=== PATIENT | male | born 1980 | race Caucasian/White ===

== ENCOUNTER → 2020-10-23 16:34 | Outpatient (CLI) | payer OTHER, MEDICAID, SELFPAY ==
[2020-10-23] MEDS: COVID-19 VACC #1, MRNA(MOD) 100 MCG/0.5 ML VIAL IM (16:40)
== END ==
PROVIDERS: Family Provider Family Medicine; PCP Family Medicine; Visit Provider Internal Medicine
DX: Z23 Encounter for immunization (principal)
CPT/HCPCS: 0011A; 91301

== ENCOUNTER → 2020-11-20 11:20 | Outpatient (CLI) | payer OTHER, MEDICAID, SELFPAY ==
[2020-11-20] MEDS: COVID-19 VACC #2, MRNA(MOD) 100 MCG/0.5 ML VIAL IM (11:32)
== END ==
PROVIDERS: Family Provider Family Medicine; PCP Family Medicine; Visit Provider Internal Medicine
DX: Z23 Encounter for immunization (principal)
CPT/HCPCS: 0012A; 91301

== ENCOUNTER → 2023-02-06 11:31 | Outpatient (CLI) | payer OTHER, MEDICAID, SELFPAY ==
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
== END ==
PROVIDERS: Family Provider Family Medicine; PCP Family Medicine; Referring Provider Physical Medicine & Rehabilitation; Visit Provider Physical Medicine & Rehabilitation
DX: S83.422A Sprain of lateral collateral ligament of left knee, initial encounter (principal); M70.62 Trochanteric bursitis, left hip; M25.552 Pain in left hip; M25.562 Pain in left knee; M25.462 Effusion, left knee
CPT/HCPCS: 73522; 73562; 99213

== ENCOUNTER → 2023-06-12 11:06 | Outpatient (CLI) | payer OTHER, MEDICAID, SELFPAY ==
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
== END ==
PROVIDERS: Family Provider Family Medicine; PCP Family Medicine; Referring Provider Physical Medicine & Rehabilitation; Visit Provider Physical Medicine & Rehabilitation
DX: S83.422A Sprain of lateral collateral ligament of left knee, initial encounter (principal); S83.512A Sprain of anterior cruciate ligament of left knee, initial encounter; S83.412A Sprain of medial collateral ligament of left knee, initial encounter; M22.42 Chondromalacia patellae, left knee; X58.XXXA Exposure to other specified factors, initial encounter
CPT/HCPCS: 73721